=== PATIENT | male | born 1960 | race Caucasian/White ===

== ENCOUNTER 2016-11-15 13:06 | Emergency (ER) | payer MEDICAID ==
[~2016-11-15] VITALS: Ht 188 cm; Wt 84.1 kg
[~2016-11-15 13:06] MED LIST: ASPI81TA14 PO; SERT25TA PO; WARF7.5T6 PO
[2016-11-15] MEDS ORDERED: ONDANSETRON 2MG/ML, 2ML IVPush ONE (14:00)
[2016-11-15] MEDS ORDERED: SODIUM CHLORIDE FLUSH 10ML SYR IVF ONE (14:00)
[2016-11-15] MEDS ORDERED: ONDANSETRON 2MG/ML, 2ML ONE (14:06)
[2016-11-15] MEDS ORDERED: HYDROmorphone 1 MG/ML, 1ML ONE ×2 (14:06→14:43)
[2016-11-15] MEDS: HYDROmorphone 1 MG/ML, 1ML IVPush PRN ×2 (14:08→16:27)
[2016-11-15 14:28] LABS: BLOOD UREA NITROGEN 7 mg/dL (7-18)
[2016-11-15 14:38] LABS: HEMATOCRIT 44.7 % (39.2-51.8); HEMOGLOBIN 14.8 g/dL (13.7-18.0)
[2016-11-15] MEDS ORDERED: CEFTRIAXONE PMX 1GM/50ML 50 ML ONE (16:23)
[2016-11-15] MEDS ORDERED: CLINDAMYCIN PMX 600MG/50ML 50 ML ONE (16:24)
[2016-11-15] MEDS ORDERED: CLINDAMYCIN PMX 600MG/50ML 50 ML IV ONE (16:30)
[2016-11-15 17:37] VITALS: BP 132/64
== END 2016-11-15 17:40 | disposition home or self-care (01) ==
LOC: ED 16:06
DX: L03.115 Cellulitis of right lower limb (principal); L03.116 Cellulitis of left lower limb; Z86.718 Personal history of other venous thrombosis and embolism
CPT/HCPCS: 36415; 80048; 82040; 83605; 85025; 85610; 85730; 87040; 93970; 96365; 96375; 99285; J1170; J2405

== ENCOUNTER 2016-11-21 11:36 | Emergency (ER) | payer MEDICAID ==
[~2016-11-21] VITALS: Ht 188 cm; Wt 85.0 kg
[2016-11-21] MEDS ORDERED: ONDANSETRON 2MG/ML, 2ML IVPush ONE (13:00)
[2016-11-21] MEDS ORDERED: SODIUM CHLORIDE FLUSH 10ML SYR IVF ONE (13:00)
[2016-11-21] MEDS ORDERED: MORPHINE SULFATE 4 MG/ML, 1ML IVPush PRN (13:00)
[2016-11-21] MEDS ORDERED: SODIUM CHLORIDE 0.9% 1,000ML IVBOLUS ONE (13:00)
[2016-11-21 13:33] LABS: HEMATOCRIT 43.6 % (39.2-51.8); HEMOGLOBIN 14.4 g/dL (13.7-18.0); WHITE BLOOD COUNT 13.3 x10^3/uL (3.4-10)
[2016-11-21 13:41] LABS: BLOOD UREA NITROGEN 12 mg/dL (7-18)
[2016-11-21] MEDS ORDERED: OXYcodone/APAP 5/325MG TABLET PO ONE (14:30)
[2016-11-21] MEDS ORDERED: OXYcodone/APAP 5/325MG TABLET ONE (14:34)
[2016-11-21 14:46] VITALS: BP 132/68
== END 2016-11-21 14:48 | disposition home or self-care (01) ==
LOC: ED 14:30
DX: I87.2 Venous insufficiency (chronic) (peripheral) (principal); Z86.718 Personal history of other venous thrombosis and embolism
CPT/HCPCS: 36415; 80048; 82040; 85025; 93005; 99285; J7512

== ENCOUNTER 2016-11-30 12:56 | Emergency (ER) | payer MEDICAID ==
[~2016-11-30] VITALS: Ht 188 cm; Wt 80.0 kg
[2016-11-30] MEDS ORDERED: MORPHINE SULFATE 4 MG/ML, 1ML ONE (13:20)
[2016-11-30] MEDS ORDERED: SODIUM CHLORIDE FLUSH 10ML SYR IVF ONE (13:30)
[2016-11-30] MEDS ORDERED: MORPHINE SULFATE 4 MG/ML, 1ML IVPush PRN (13:30)
[2016-11-30 13:32] LABS: BLOOD UREA NITROGEN 8 mg/dL (7-18)
[2016-11-30 13:38] LABS: HEMATOCRIT 46.6 % (39.2-51.8); HEMOGLOBIN 15.5 g/dL (13.7-18.0); WHITE BLOOD COUNT 14.7 x10^3/uL (3.4-10)
[2016-11-30 15:34] VITALS: BP 143/87
== END 2016-11-30 15:36 | disposition home or self-care (01) ==
LOC: ED 13:34
DX: G89.29 Other chronic pain (principal); M79.605 Pain in left leg; M79.604 Pain in right leg; G62.9 Polyneuropathy, unspecified; I87.2 Venous insufficiency (chronic) (peripheral); F17.200 Nicotine dependence, unspecified, uncomplicated; Z88.0 Allergy status to penicillin; Z86.718 Personal history of other venous thrombosis and embolism
CPT/HCPCS: 36415; 80048; 82040; 85025; 85610; 93005; 96374

== ENCOUNTER 2017-03-20 12:57 | Observation (INO) | payer MEDICAID ==
[~2017-03-20] VITALS: Ht 182.9 cm; Wt 85.0 kg
[2017-03-20 13:32] LABS: ALANINE AMINOTRANSFERASE 42 U/L (12-78); ALBUMIN 3.9 g/dL (3.4-5.0); ANION GAP 11 mmol/L (5-15); CHLORIDE 110 mmol/L (98-107); CREATININE 0.84 mg/dL (0.7-1.3); SALICYLATE LEVEL 3.3 mg/dL (2.8-20.0)
[2017-03-20 13:34] LABS: ALKALINE PHOSPHATASE 86 U/L (45-117); BILIRUBIN,TOTAL 0.3 mg/dL (0.2-1.0); TOTAL PROTEIN 7.7 g/dL (6.4-8.2)
[2017-03-20 13:36] LABS: ACETAMINOPHEN < 2 mcg/mL (10-30)
[2017-03-20 13:39] LABS: BASOPHILS # (AUTO) 0.44 x10^3/uL (0-0.1); BASOPHILS % (AUTO) 4 % (0-1); EOSINOPHILS # (AUTO) 0.08 x10^3/uL (0-0.4); EOSINOPHILS % (AUTO) 1 % (1-7); LYMPHOCYTES # (AUTO) 3.75 x10^3/uL (1-3.4); LYMPHOCYTES % (AUTO) 33 % (22-44); MD NO; MEAN CORPUSCULAR HEMOGLOBIN 29.7 pg (27.5-34.5); MEAN PLATELET VOLUME 8.8 fL (7.4-10.4); MONOCYTES # (AUTO) 0.94 x10^3/uL (0.2-0.8); MONOCYTES % (AUTO) 8 % (2-9); NEUTROPHILS % (AUTO) 54 % (42-75); PLATELET COUNT 421 x10^3/uL (130-400); RED BLOOD COUNT 5.26 x10^6/uL (4.38-5.82); RED CELL DISTRIBUTION WIDTH 14.1 % (9.4-14.8)
[2017-03-20 14:01] LABS: INTERNATIONAL NORMALIZED RATIO 2.67 (0.93-1.1)
[2017-03-20 14:06] LABS: AMPHETAMINE SCREEN, URINE Negative (Negative); BARBITURATE SCREEN, URINE Negative (Negative); BENZODIAZEPINE SCREEN, URINE Negative (Negative); CANNABINOID SCREEN, URINE Negative (Negative); COCAINE SCREEN, URINE Negative (Negative); METHADONE SCREEN, URINE Negative (Negative); OPIATE SCREEN, URINE Negative (Negative)
[2017-03-20] MEDS ORDERED: LORazepam 1MG TABLET PO ONE (20:00)
[2017-03-21] MEDS ORDERED: LORazepam 1MG TABLET PO ONE
[2017-03-21] MEDS ORDERED: ACETAMINOPHEN 325 MG TABLET PO PRN (06:30)
[2017-03-21] MEDS ORDERED: LORazepam 2 MG/ML, 1ML IM PRN (06:30)
[2017-03-21] MEDS ORDERED: ONDANSETRON ODT 4 MG PO PRN (06:30)
[2017-03-21] MEDS ORDERED: DOCUSATE 100 MG CAPSULE PO PRN (06:30)
[2017-03-21] MEDS ORDERED: BISACODYL 10 MG SUPP PR PRN (06:30)
[2017-03-21] MEDS ORDERED: POLYETHYLENE GLYCOL 17 GM PACKET PO PRN (06:30)
[2017-03-21 06:34] LABS: FREE T4 (FREE THYROXINE) 0.88 ng/dL (0.76-1.46); THYROID STIMULATING HORMONE 1.58 mIU/L (0.358-3.740)
[2017-03-21] MEDS ORDERED: SERTRALINE HCL 150 MG PO SCH (09:00)
[2017-03-21] MEDS: PLEASE ENTER WEIGHT MC SCH (17:30)
[2017-03-21 19:55] LABS: INTERNATIONAL NORMALIZED RATIO 2.1 (0.93-1.1); PROTHROMBIN TIME 21.3 Seconds (9.6-11.5)
[2017-03-22] MEDS: PLEASE ENTER WEIGHT MC SCH (01:30)
[2017-03-22 06:27] LABS: INTERNATIONAL NORMALIZED RATIO 1.79 (0.93-1.1); PROTHROMBIN TIME 18.2 Seconds (9.6-11.5)
[2017-03-22] MEDS ORDERED: LORazepam 1MG TABLET ONE (08:54)
[2017-03-22] MEDS: LORazepam 1MG TABLET PO PRN ×2 (08:55→19:54)
[2017-03-22] MEDS: SERTRALINE 50MG TABLET PO SCH (09:30)
[2017-03-22 09:53] LABS: MICROSCOPIC NOT IND
[2017-03-22 10:02] LABS: CULTURE INDICATED? NO
[2017-03-22 16:20] VITALS: BP 139/91
[2017-03-22] MEDS ORDERED: WARFARIN 10 MG TABLET PO-COUM ONE (18:00)
[2017-03-22 19:38] VITALS: BP 128/79
[2017-03-23 06:04] LABS: INTERNATIONAL NORMALIZED RATIO 1.44 (0.93-1.1); PROTHROMBIN TIME 14.7 Seconds (9.6-11.5)
[2017-03-23 07:57] VITALS: BP 124/83
[2017-03-23] MEDS: SERTRALINE 50MG TABLET PO SCH (08:28)
[2017-03-23] MEDS ORDERED: WARFARIN 10 MG TABLET PO-COUM ONE (18:00)
[2017-03-23] MEDS ORDERED: WARFARIN 2 MG TABLET PO-COUM ONE (18:00)
[2017-03-23 19:29] VITALS: BP 114/71
[2017-03-23] MEDS: LORazepam 1MG TABLET PO PRN (19:55)
[2017-03-24 06:34] LABS: INTERNATIONAL NORMALIZED RATIO 1.71 (0.93-1.1); PROTHROMBIN TIME 17.4 Seconds (9.6-11.5)
[2017-03-24 07:30] VITALS: BP 107/72
[2017-03-24] MEDS: SERTRALINE 50MG TABLET PO SCH (08:47)
[2017-03-24] MEDS ORDERED: WARFARIN 10 MG TABLET PO-COUM ONE (18:00)
[2017-03-24 20:00] VITALS: BP 105/70
[2017-03-25 07:00] LABS: INTERNATIONAL NORMALIZED RATIO 2.22 (0.93-1.1); PROTHROMBIN TIME 22.5 Seconds (9.6-11.5)
[2017-03-25 07:30] VITALS: BP 109/56
[2017-03-25] MEDS: SERTRALINE 50MG TABLET PO SCH (08:24)
[2017-03-25] MEDS ORDERED: WARFARIN 3 MG TABLET PO-COUM ONE (18:00)
[2017-03-25 20:11] VITALS: BP 112/76
[2017-03-26 05:29] LABS: INTERNATIONAL NORMALIZED RATIO 2.27 (0.93-1.1)
[2017-03-26 08:25] VITALS: BP 117/78
[2017-03-26] MEDS: SERTRALINE 50MG TABLET PO SCH (08:41)
[2017-03-26] MEDS ORDERED: WARFARIN 3 MG TABLET PO-COUM ONE (18:00)
[2017-03-26 19:38] VITALS: BP 116/78
[2017-03-26] MEDS: LORazepam 1MG TABLET PO PRN (20:23)
[2017-03-27 05:44] LABS: INTERNATIONAL NORMALIZED RATIO 2.38 (0.93-1.1); PROTHROMBIN TIME 24.1 Seconds (9.6-11.5)
[2017-03-27 07:42] VITALS: BP 112/72
[2017-03-27] MEDS: SERTRALINE 50MG TABLET PO SCH (08:29)
[2017-03-27] MEDS ORDERED: WARFARIN 3 MG TABLET PO-COUM ONE (18:00)
[2017-03-27 19:59] VITALS: BP 117/76
[2017-03-27] MEDS: LORazepam 1MG TABLET PO PRN (20:35)
[2017-03-28 05:48] LABS: INTERNATIONAL NORMALIZED RATIO 2.25 (0.93-1.1); PROTHROMBIN TIME 22.8 Seconds (9.6-11.5)
[2017-03-28] MEDS: SERTRALINE 50MG TABLET PO SCH (08:03)
[2017-03-28 08:58] VITALS: BP 112/77
[2017-03-28] MEDS ORDERED: WARFARIN 10 MG TABLET PO-COUM ONE (18:00)
[2017-03-28] MEDS: LORazepam 1MG TABLET PO PRN (18:23)
[2017-03-28 20:00] VITALS: BP 121/78
[2017-03-29 05:45] LABS: INTERNATIONAL NORMALIZED RATIO 2.28 (0.93-1.1); PROTHROMBIN TIME 23.1 Seconds (9.6-11.5)
[2017-03-29] MEDS: SERTRALINE 50MG TABLET PO SCH (08:02)
[2017-03-29 09:46] VITALS: BP 104/73
[2017-03-29] MEDS ORDERED: WARFARIN 10 MG TABLET PO-COUM SCH (18:00)
== END 2017-03-29 17:01 | disposition home or self-care (01) ==
LOC: ED 18:30 → EDIP 23:58 → 2N 03-22 14:41
PROVIDERS: ADMIT Internal Medicine; ATTEND Family Medicine
DX: R45.851 Suicidal ideations (principal); I73.9 Peripheral vascular disease, unspecified; F12.90 Cannabis use, unspecified, uncomplicated; F17.210 Nicotine dependence, cigarettes, uncomplicated; F33.9 Major depressive disorder, recurrent, unspecified; Z79.01 Long term (current) use of anticoagulants; Z86.711 Personal history of pulmonary embolism; Z86.718 Personal history of other venous thrombosis and embolism
CPT/HCPCS: 36415; 80053; 80307; 80329; 81003; 84439; 84443; 85025; 85610; 99285; G0378; Q0162; G0480

== ENCOUNTER 2017-03-30 01:05 | Observation (INO) | payer MEDICAID ==
[~2017-03-30] VITALS: Ht 188 cm; Wt 100.0 kg
[2017-03-30 01:42] LABS: INTERNATIONAL NORMALIZED RATIO 2.13 (0.93-1.1); PROTHROMBIN TIME 21.6 Seconds (9.6-11.5)
[2017-03-30 01:47] LABS: ALANINE AMINOTRANSFERASE 36 U/L (12-78); ALBUMIN 4.4 g/dL (3.4-5.0); ANION GAP 12 mmol/L (5-15); CALCIUM 8.3 mg/dL (8.5-10.1); CHLORIDE 107 mmol/L (98-107)
[2017-03-30 01:49] LABS: ALKALINE PHOSPHATASE 86 U/L (45-117); BASOPHILS # (AUTO) 0.17 x10^3/uL (0-0.1); BASOPHILS % (AUTO) 2 % (0-1); BILIRUBIN,TOTAL 0.2 mg/dL (0.2-1.0); EOSINOPHILS # (AUTO) 0.09 x10^3/uL (0-0.4); EOSINOPHILS % (AUTO) 1 % (1-7); LYMPHOCYTES # (AUTO) 3.44 x10^3/uL (1-3.4); LYMPHOCYTES % (AUTO) 32 % (22-44); MD NO; MEAN CORPUSCULAR HEMOGLOBIN 30.3 pg (27.5-34.5); MEAN CORPUSCULAR HGB CONC 33.3 g/dL (33.2-36.2); MEAN PLATELET VOLUME 9.4 fL (7.4-10.4); MONOCYTES % (AUTO) 12 % (2-9); NEUTROPHILS # (AUTO) 5.88 x10^3/uL (1.8-6.8); NEUTROPHILS % (AUTO) 54 % (42-75); PLATELET COUNT 325 x10^3/uL (130-400); RED BLOOD COUNT 5.18 x10^6/uL (4.38-5.82); RED CELL DISTRIBUTION WIDTH 14.2 % (9.4-14.8); TOTAL PROTEIN 8.7 g/dL (6.4-8.2)
[2017-03-30 01:50] LABS: ACETAMINOPHEN < 2 mcg/mL (10-30)
[2017-03-30 02:04] LABS: AMPHETAMINE SCREEN, URINE Negative (Negative); BARBITURATE SCREEN, URINE Negative (Negative); BENZODIAZEPINE SCREEN, URINE Negative (Negative); CANNABINOID SCREEN, URINE Negative (Negative); COCAINE SCREEN, URINE Negative (Negative); METHADONE SCREEN, URINE Negative (Negative); OPIATE SCREEN, URINE Negative (Negative)
[2017-03-30] MEDS ORDERED: HALOPERIDOL 5 MG TABLET PO PRN (14:30)
[2017-03-30] MEDS ORDERED: ONDANSETRON ODT 4 MG PO PRN (14:30)
[2017-03-30] MEDS ORDERED: POTASSIUM CHLORIDE 20 MEQ TAB.ER.PRT ONE (14:55)
[2017-03-30] MEDS ORDERED: SERTRALINE 50MG TABLET ONE (14:56)
[2017-03-30] MEDS ORDERED: POTASSIUM CHLORIDE 20 MEQ TAB.ER.PRT PO ONE (15:00)
[2017-03-30] MEDS ORDERED: THIAMINE 100MG TABLET PO ONE (15:00)
[2017-03-30] MEDS ORDERED: FOLIC ACID 1 MG TABLET PO ONE (15:00)
[2017-03-30] MEDS: SERTRALINE 50MG TABLET PO SCH (15:11)
[2017-03-30] MEDS ORDERED: ONDANSETRON ODT 4 MG ONE (16:44)
[2017-03-30] MEDS ORDERED: WARFARIN 10 MG TABLET PO-COUM ONE (18:00)
[2017-03-31 05:33] LABS: INTERNATIONAL NORMALIZED RATIO 2.29 (0.93-1.1); PROTHROMBIN TIME 23.2 Seconds (9.6-11.5)
[2017-03-31] MEDS: SERTRALINE 50MG TABLET PO SCH (09:00)
[2017-03-31] MEDS ORDERED: SERTRALINE 50MG TABLET PO SCH (09:00)
[2017-03-31] MEDS ORDERED: WARFARIN 10 MG TABLET PO-COUM SCH (18:00)
[2017-04-01 06:23] LABS: INTERNATIONAL NORMALIZED RATIO 2.68 (0.93-1.1); PROTHROMBIN TIME 27.1 Seconds (9.6-11.5)
[2017-04-01] MEDS ORDERED: SERTRALINE 50MG TABLET ONE (08:52)
[2017-04-01] MEDS: SERTRALINE 50MG TABLET PO SCH (09:19)
[2017-04-01] MEDS ORDERED: WARFARIN 7.5 MG TABLET PO-COUM SCH (18:00)
[2017-04-01 20:07] VITALS: BP 134/80
[2017-04-02 05:40] LABS: INTERNATIONAL NORMALIZED RATIO 3.13 (0.93-1.1); PROTHROMBIN TIME 31.5 Seconds (9.6-11.5)
[2017-04-02 07:59] VITALS: BP 111/71
[2017-04-02] MEDS: SERTRALINE 50MG TABLET PO SCH (08:42)
[2017-04-02] MEDS ORDERED: WARFARIN 2.5 MG TABLET PO-COUM ONE (18:00)
[2017-04-02 20:21] VITALS: BP 117/81
[2017-04-03 08:00] VITALS: BP 103/72
[2017-04-03] MEDS: SERTRALINE 50MG TABLET PO SCH (08:28)
[2017-04-03] MEDS ORDERED: WARFARIN 5 MG TABLET PO-COUM ONE (18:00)
[2017-04-03 19:34] VITALS: BP 107/71
[2017-04-04 08:07] VITALS: BP 112/70
[2017-04-04] MEDS: SERTRALINE 50MG TABLET PO SCH (08:07)
[2017-04-04] MEDS ORDERED: WARFARIN 5 MG TABLET PO-COUM ONE (18:00)
[2017-04-04 19:39] VITALS: BP 103/69
[2017-04-05 08:01] VITALS: BP 108/68
[2017-04-05] MEDS: SERTRALINE 50MG TABLET PO SCH (09:48)
[2017-04-05 19:19] VITALS: BP 118/85
[2017-04-06 07:43] VITALS: BP 107/90
[2017-04-06 08:18] LABS: INTERNATIONAL NORMALIZED RATIO 1.45 (0.93-1.1)
[2017-04-06] MEDS: SERTRALINE 50MG TABLET PO SCH (08:45)
[2017-04-06] MEDS ORDERED: WARFARIN 7.5 MG TABLET PO-COUM ONE (18:00)
[2017-04-06 19:35] VITALS: BP 107/74
[2017-04-06] MEDS: TRAZODONE 50MG TABLET PO PRN (21:28)
[2017-04-07 07:45] VITALS: BP 117/72
[2017-04-07] MEDS: SERTRALINE 50MG TABLET PO SCH (08:34)
[2017-04-07] MEDS ORDERED: WARFARIN 7.5 MG TABLET PO-COUM SCH (18:00)
[2017-04-07 19:32] VITALS: BP 115/62
[2017-04-07] MEDS: TRAZODONE 50MG TABLET PO PRN (22:49)
[2017-04-08 07:23] VITALS: BP 110/66
[2017-04-08] MEDS: SERTRALINE 50MG TABLET PO SCH (08:28)
[2017-04-08] MEDS ORDERED: WARFARIN 7.5 MG TABLET PO-COUM ONE (18:00)
[2017-04-08 19:39] VITALS: BP 110/75
[2017-04-08] MEDS: TRAZODONE 50MG TABLET PO PRN (21:25)
[2017-04-09 07:43] VITALS: BP 115/79
[2017-04-09] MEDS: SERTRALINE 50MG TABLET PO SCH (08:33)
[2017-04-09] MEDS ORDERED: WARFARIN 7.5 MG TABLET PO-COUM ONE (18:00)
[2017-04-09 20:03] VITALS: BP 122/74
[2017-04-09] MEDS: TRAZODONE 50MG TABLET PO PRN (20:46)
[2017-04-10 05:26] LABS: INTERNATIONAL NORMALIZED RATIO 1.44 (0.93-1.1); PROTHROMBIN TIME 14.9 Seconds (9.6-11.5)
[2017-04-10 07:44] VITALS: BP 109/71
[2017-04-10] MEDS: SERTRALINE 50MG TABLET PO SCH (08:01)
[2017-04-10] MEDS ORDERED: WARFARIN 7.5 MG TABLET PO-COUM ONE (18:00)
[2017-04-10 19:45] VITALS: BP 117/77
[2017-04-10] MEDS: TRAZODONE 50MG TABLET PO PRN (21:00)
[2017-04-11 07:23] LABS: MEAN CORPUSCULAR HEMOGLOBIN 30.2 pg (27.5-34.5); MEAN CORPUSCULAR HGB CONC 33.2 g/dL (33.2-36.2); MEAN CORPUSCULAR VOLUME 90.8 fL (81-97); MEAN PLATELET VOLUME 9.7 fL (7.4-10.4); PLATELET COUNT 445 x10^3/uL (130-400); RED BLOOD COUNT 4.97 x10^6/uL (4.38-5.82); RED CELL DISTRIBUTION WIDTH 14.1 % (9.4-14.8)
[2017-04-11 07:24] LABS: ANION GAP 4 mmol/L (5-15); CHLORIDE 107 mmol/L (98-107); CREATININE 1.03 mg/dL (0.7-1.3)
[2017-04-11 07:25] VITALS: BP 98/64
[2017-04-11 07:35] LABS: MD YES
[2017-04-11 07:37] LABS: <PLATELET ESTIMATE> INCREASED; <RBC MORPHOLOGY> NORMAL; EOS#(MANUAL) 0.56 x10^3/uL (0.0-0.4); EOS% (MANUAL) 6 % (1-7); LYMPH#(MANUAL) 3.07 x10^3/uL (1-3.4); LYMPHS% (MANUAL) 33 % (22-44); MONOS#(MANUAL) 0.84 x10^3/uL (0.3-2.7); MONOS% (MANUAL) 9 % (2-9); SEG#(MANUAL) 4.84 x10^3/uL (1.8-6.8); SEGS% (MANUAL) 52 % (42-75)
[2017-04-11 07:39] LABS: LARGE PLATELETS 1+
[2017-04-11] MEDS: SERTRALINE 50MG TABLET PO SCH (08:29)
[2017-04-11] MEDS ORDERED: WARFARIN 7.5 MG TABLET PO-COUM ONE (18:00)
[2017-04-11 19:41] VITALS: BP 112/75
[2017-04-11] MEDS: TRAZODONE 50MG TABLET PO PRN (22:40)
[2017-04-12 07:45] VITALS: BP 107/72
[2017-04-12] MEDS: SERTRALINE 50MG TABLET PO SCH (08:04)
== END 2017-04-12 16:00 | disposition home or self-care (01) ==
LOC: ED 01:25 → EDIP 13:45 → 2N 04-01 19:26
PROVIDERS: ADMIT Internal Medicine; ATTEND Internal Medicine
DX: R45.851 Suicidal ideations (principal); F32.9 Major depressive disorder, single episode, unspecified; F10.220 Alcohol dependence with intoxication, uncomplicated; E83.51 Hypocalcemia; E83.39 Other disorders of phosphorus metabolism; E87.6 Hypokalemia; D68.59 Other primary thrombophilia; F17.210 Nicotine dependence, cigarettes, uncomplicated; I73.9 Peripheral vascular disease, unspecified; Z79.01 Long term (current) use of anticoagulants; Z86.718 Personal history of other venous thrombosis and embolism; Z86.711 Personal history of pulmonary embolism; F12.90 Cannabis use, unspecified, uncomplicated
CPT/HCPCS: 36415; 70450; 80048; 80053; 80307; 80329; 82962; 85025; 85610; 93005; 99285; G0378; Q0162; G0480

== ENCOUNTER 2017-04-14 17:44 | Emergency (ER) | payer MEDICAID ==
[~2017-04-14] VITALS: Ht 175.3 cm; Wt 93.3 kg
[2017-04-14 18:51] LABS: BASOPHILS # (AUTO) 0.07 x10^3/uL (0-0.1); BASOPHILS % (AUTO) 1 % (0-1); EOSINOPHILS # (AUTO) 0.03 x10^3/uL (0-0.4); EOSINOPHILS % (AUTO) 0 % (1-7); LYMPHOCYTES # (AUTO) 3.62 x10^3/uL (1-3.4); LYMPHOCYTES % (AUTO) 31 % (22-44); MD NO; MEAN CORPUSCULAR HEMOGLOBIN 30.1 pg (27.5-34.5); MEAN CORPUSCULAR HGB CONC 33.3 g/dL (33.2-36.2); MEAN CORPUSCULAR VOLUME 90.3 fL (81-97); MEAN PLATELET VOLUME 9.4 fL (7.4-10.4); MONOCYTES # (AUTO) 0.89 x10^3/uL (0.2-0.8); MONOCYTES % (AUTO) 8 % (2-9); NEUTROPHILS # (AUTO) 7.21 x10^3/uL (1.8-6.8); NEUTROPHILS % (AUTO) 61 % (42-75); PLATELET COUNT 438 x10^3/uL (130-400); RED BLOOD COUNT 5.22 x10^6/uL (4.38-5.82); RED CELL DISTRIBUTION WIDTH 14.3 % (9.4-14.8)
[2017-04-14 19:00] LABS: ALBUMIN 4.5 g/dL (3.4-5.0); ANION GAP 11 mmol/L (5-15); CALCIUM 8.9 mg/dL (8.5-10.1); CHLORIDE 107 mmol/L (98-107); CREATININE 0.98 mg/dL (0.7-1.3); SALICYLATE LEVEL 2.3 mg/dL (2.8-20.0)
[2017-04-14 19:03] LABS: ACETAMINOPHEN < 2 mcg/mL (10-30)
[2017-04-14 19:48] VITALS: BP 102/73
== END 2017-04-14 22:00 | disposition home or self-care (01) ==
LOC: ED 20:18
DX: F10.229 Alcohol dependence with intoxication, unspecified (principal); Z86.718 Personal history of other venous thrombosis and embolism; Z79.899 Other long term (current) drug therapy
CPT/HCPCS: 36415; 80048; 80307; 80329; 82040; 85025; 93005; 99285; G0480

== ENCOUNTER 2018-01-05 12:07 | Emergency (ER) | payer MEDICAID ==
[~2018-01-05] VITALS: Ht 188 cm; Wt 85.7 kg
[~2018-01-05 12:07] MED LIST changes: +WARF7.5T46 PO; -WARF7.5T6 PO
[2018-01-05] MEDS ORDERED: CEFAZOLIN PMX 1GM/50ML 50 ML IV ONE (12:30)
[2018-01-05] MEDS ORDERED: SULFAMETH./TRIMETHOPRIM DS 800MG/160MG TABLET PO ONE (12:30)
[2018-01-05] MEDS ORDERED: SODIUM CHLORIDE FLUSH 10ML SYR IVF ONE (12:30)
[2018-01-05] MEDS ORDERED: SODIUM CHLORIDE 0.9% 1,000ML IVBOLUS ONE (12:30)
[2018-01-05] MEDS ORDERED: RIVA20TA PO (12:45)
[2018-01-05] MEDS ORDERED: SULFAMETH./TRIMETHOPRIM DS 800MG/160MG TABLET ONE (12:48)
[2018-01-05] MEDS ORDERED: CEFAZOLIN PMX 1GM/50ML 50 ML ONE (12:48)
[2018-01-05 13:06] LABS: ALBUMIN 4.1 g/dL (3.4-5.0); ANION GAP 15 mmol/L (5-15); CALCIUM 8.5 mg/dL (8.5-10.1); CHLORIDE 101 mmol/L (98-107); CREATININE 0.81 mg/dL (0.7-1.3)
[2018-01-05 13:09] LABS: MD YES
[2018-01-05 13:38] LABS: MEAN CORPUSCULAR HEMOGLOBIN 31.5 pg (27.5-34.5); MEAN CORPUSCULAR HGB CONC 33.4 g/dL (33.2-36.2); MEAN CORPUSCULAR VOLUME 94.6 fL (81-97); MEAN PLATELET VOLUME 9.3 fL (7.4-10.4); PLATELET COUNT 161 x10^3/uL (130-400); RED BLOOD COUNT 4.56 x10^6/uL (4.38-5.82); RED CELL DISTRIBUTION WIDTH 16.6 % (9.4-14.8)
[2018-01-05 13:40] LABS: BAND#(MANUAL) 0.26 x10^3/uL; BANDS%(MANUAL) 3 % (0-7); LYMPH#(MANUAL) 1.12 x10^3/uL (1-3.4); LYMPHS% (MANUAL) 13 % (22-44); MONOS#(MANUAL) 0.95 x10^3/uL (0.3-2.7); MONOS% (MANUAL) 11 % (2-9); NRBC % (MANUAL) 1 % (0-1); SEG#(MANUAL) 6.28 x10^3/uL (1.8-6.8); SEGS% (MANUAL) 73 % (42-75)
[2018-01-05 13:44] LABS: OVALOCYTES 1+; SCHISTOCYTES 1+; SPHEROCYTES 1+
[2018-01-05 13:46] LABS: TARGET CELLS 1+
[2018-01-05 13:47] LABS: <PLATELET ESTIMATE> ADEQUATE; <PLT MORPHOLOGY> NORMAL PLT MORPH; ACANTHOCYTES 1+
[2018-01-05 14:28] VITALS: BP 136/83
== END 2018-01-05 14:56 | disposition left against medical advice (07) ==
LOC: ED 14:50
DX: L03.116 Cellulitis of left lower limb (principal); F32.9 Major depressive disorder, single episode, unspecified; Z86.718 Personal history of other venous thrombosis and embolism
CPT/HCPCS: 36415; 73630; 80048; 82040; 83605; 84145; 85025; 87040; 96365; 99284; J0690; J7030

== ENCOUNTER 2018-05-29 20:31 | Emergency (ER) | payer MEDICAID ==
[~2018-05-29] VITALS: Ht 188 cm; Wt 89.0 kg
[~2018-05-29 20:31] MED LIST changes: +RIVA20TA PO
[2018-05-29 21:54] LABS: BASOPHILS # (AUTO) 0.19 x10^3/uL (0-0.1); BASOPHILS % (AUTO) 2 % (0-1); EOSINOPHILS # (AUTO) 0.29 x10^3/uL (0-0.4); EOSINOPHILS % (AUTO) 2 % (1-7); LYMPHOCYTES # (AUTO) 3.41 x10^3/uL (1-3.4); LYMPHOCYTES % (AUTO) 29 % (22-44); MD NO; MEAN CORPUSCULAR HEMOGLOBIN 31.2 pg (27.5-34.5); MEAN CORPUSCULAR HGB CONC 32.8 g/dL (33.2-36.2); MEAN CORPUSCULAR VOLUME 95.1 fL (81-97); MEAN PLATELET VOLUME 8.8 fL (7.4-10.4); MONOCYTES # (AUTO) 1.29 x10^3/uL (0.2-0.8); MONOCYTES % (AUTO) 11 % (2-9); NEUTROPHILS # (AUTO) 6.65 x10^3/uL (1.8-6.8); NEUTROPHILS % (AUTO) 56 % (42-75); PLATELET COUNT 471 x10^3/uL (130-400); RED BLOOD COUNT 4.83 x10^6/uL (4.38-5.82); RED CELL DISTRIBUTION WIDTH 16.2 % (9.4-14.8)
--- NOTE | 2018-05-29 21:56 | NUR ---
HEMA RN: PT REPORTS SOB AND COUGH. VS STABLE. 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 NSR NOTED. PUSLE OX ON 100% RA. CALL LIGHT IN PLACE. REPORT GIVEN TO RICKEY FARFAN
[2018-05-29 22:04] LABS: ALBUMIN 3.9 g/dL (3.4-5.0); ANION GAP 5 mmol/L (5-15); CHLORIDE 110 mmol/L (98-107); CREATININE 0.86 mg/dL (0.7-1.3)
[2018-05-29 22:08] LABS: TROPONIN I < 0.015 ng/mL (0.000-0.045)
[2018-05-29] MEDS ORDERED: ALBUTEROL/IPRATROPIUM 2.5MG/0.5MG, 3 ML NPPB ONE (22:30)
[2018-05-29 23:11] VITALS: BP 117/71
== END 2018-05-29 23:17 | disposition home or self-care (01) ==
LOC: ED 23:06
DX: J20.9 Acute bronchitis, unspecified (principal); R06.00 Dyspnea, unspecified; Z86.718 Personal history of other venous thrombosis and embolism; Z88.0 Allergy status to penicillin
CPT/HCPCS: 36415; 71046; 80048; 82040; 84484; 85025; 85379; 93005; 94640; 99284; J7620

== ENCOUNTER 2020-01-15 10:07 | Emergency (ER) | payer MEDICAID ==
[~2020-01-15] VITALS: Ht 188 cm; Wt 91.0 kg
--- NOTE | 2020-01-15 10:08 | NUR ---
INITIAL PT CONTACT. PT PRESENTS TO ED VIA EMS C/O "ETOH DETOX". LAST DRINK LAST NIGHT, DRINKS 1-2 PINTS OF [place]NAP[place] DAILY. "I WANT TO STOP DRINKING BUT I ALWAYS GET THE SHAKES LIKE THIS WHEN I TRY TO STOP". PT C/O NAUSEA AND MILD TEE ALONG WITH TREMORS. PT SITTING UPRIGHT ON GURNEY, ANXIOUS. ERP AT BEDSIDE. CALL LIGHT AND SEIZURE PRECAUTIONS IN PLACE. WILL CONTINUE TO MONITOR.
[2020-01-15] MEDS ORDERED: LORazepam 2 MG/ML, 1ML ONE (10:17)
[2020-01-15] MEDS: LORazepam 2 MG/ML, 1ML IVPush PRN ×2 (10:23→11:18)
[2020-01-15] MEDS ORDERED: THIAMINE 100MG TABLET PO ONE (10:30)
[2020-01-15] MEDS ORDERED: SODIUM CHLORIDE 0.9% 1,000ML IVBOLUS ONE (10:30)
[2020-01-15] MEDS ORDERED: THIAMINE 100MG TABLET ONE (10:32)
[2020-01-15 10:35] LABS: BASOPHILS % (AUTO) 1 % (0-1); EOSINOPHILS % (AUTO) 0 % (1-7); LYMPHOCYTES % (AUTO) 18 % (22-44); MEAN CORPUSCULAR HEMOGLOBIN 31.6 pg (27.5-34.5); MEAN CORPUSCULAR HGB CONC 33.6 g/dL (33.2-36.2); MEAN PLATELET VOLUME 9.9 fL (7.4-10.4); MONOCYTES % (AUTO) 6 % (2-9); NEUTROPHILS % (AUTO) 75 % (42-75); PLATELET COUNT 176 x10^3/uL (130-400); RED BLOOD COUNT 4.63 x10^6/uL (4.38-5.82); RED CELL DISTRIBUTION WIDTH 15.1 % (9.4-14.8)
[2020-01-15 10:37] LABS: MD NO
--- NOTE | 2020-01-15 10:44 | NUR ---
PT SLEEPING UPRIGHT ON GURNEY. O2 SAT DECREASED TO 84-86% ON ROOM AIR. PT PLACED ON SUPPLEMENTAL O2, 2L VIA NASAL CANNULA.
[2020-01-15 10:48] LABS: ALANINE AMINOTRANSFERASE 30 U/L (12-78); ALBUMIN 4.2 g/dL (3.4-5.0); ANION GAP 14 mmol/L (5-15); CHLORIDE 104 mmol/L (98-107); CREATININE 0.82 mg/dL (0.7-1.3)
[2020-01-15 10:50] LABS: ALKALINE PHOSPHATASE 112 U/L (45-117); BILIRUBIN,TOTAL 1.5 mg/dL (0.2-1.0)
[2020-01-15 11:34] VITALS: BP 133/88
--- NOTE | 2020-01-15 11:43 | NUR ---
Patient given discharge instructions and they have confirmed that they understand the instructions. Patient to d/c desk via wheelchair, per pt request.
== END 2020-01-15 11:45 | disposition home or self-care (01) ==
LOC: ED 11:02
DX: F10.239 Alcohol dependence with withdrawal, unspecified (principal); R00.0 Tachycardia, unspecified; Z86.718 Personal history of other venous thrombosis and embolism; Z86.711 Personal history of pulmonary embolism; Y90.9 Presence of alcohol in blood, level not specified
CPT/HCPCS: 36415; 80053; 80320; 83690; 85025; 96361; 96374; 96376; 99284; J2060; J7030; G0480

== ENCOUNTER 2020-08-21 10:52 | Observation (INO) | payer MEDICAID, OTHER ==
[~2020-08-21] VITALS: Ht 188 cm; Wt 87.7 kg
--- NOTE | 2020-08-21 10:55 | NUR ---
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 HX DVT AND PE. STATES IT FEELS SIMILAR. ON ARRIVAL TO ED PT STATES SOB AND CP IMPROVED. WAS GIVEN 324 MG ASA SILVER MINER BLASTING. VS SILVER MINER BLASTING HR 70, BP 110/70, 98% RA. PT RESTING ON GURNEY. NADN. MONITORS APPLIED. VSS. WARM BLANKET PROVIDED. EKG COMPLETED. SECURITY X 1 AT BEDSIDE.
[2020-08-21] MEDS ORDERED: MORPHINE SULFATE 4 MG/ML, 1ML ONE (11:30)
[2020-08-21] MEDS ORDERED: MORPHINE SULFATE 4 MG/ML, 1ML IVPush ONE (11:30)
--- NOTE | 2020-08-21 11:33 | NUR ---
PT RESTING ON GURNEY. NADN. URRUTIA.
[2020-08-21 12:09] LABS: BASOPHILS % (AUTO) 1 % (0-1); EOSINOPHILS % (AUTO) 0 % (1-7); LYMPHOCYTES % (AUTO) 15 % (22-44); MEAN CORPUSCULAR HEMOGLOBIN 33.5 pg (27.5-34.5); MEAN CORPUSCULAR HGB CONC 33.7 g/dL (33.2-36.2); MEAN PLATELET VOLUME 9.1 fL (7.4-10.4); MONOCYTES % (AUTO) 11 % (2-9); NEUTROPHILS % (AUTO) 72 % (42-75); PLATELET COUNT 421 x10^3/uL (130-400); RED BLOOD COUNT 4.49 x10^6/uL (4.38-5.82); RED CELL DISTRIBUTION WIDTH 20.4 % (9.4-14.8)
[2020-08-21 12:11] LABS: ALANINE AMINOTRANSFERASE 61 U/L (12-78); ALBUMIN 3.7 g/dL (3.4-5.0)
[2020-08-21 12:16] LABS: ALKALINE PHOSPHATASE 80 U/L (45-117); BILIRUBIN,TOTAL 0.6 mg/dL (0.2-1.0); TOTAL PROTEIN 7.3 g/dL (6.4-8.2); TROPONIN I < 0.015 ng/mL (0.000-0.045)
[2020-08-21 12:20] LABS: ANION GAP 5 mmol/L (5-15); CHLORIDE 107 mmol/L (98-107)
[2020-08-21 12:34] LABS: ANISOCYTOSIS 1+; HOWELL-JOLLY BODIES 1+
[2020-08-21 12:35] LABS: ACANTHOCYTES 1+; ECHINOCYTES 1+
[2020-08-21 12:36] LABS: <PLATELET ESTIMATE> INCREASED; <PLT MORPHOLOGY> NORMAL PLT MORPH
[2020-08-21] MEDS ORDERED: OMNIPAQUE 350 MG/ML, 75ML BOTTLE ONE (12:36)
--- NOTE | 2020-08-21 12:54 | NUR ---
PT RESTING ON GURNEY. NADN. URRUTIA.
--- NOTE | 2020-08-21 13:19 | NUR ---
PT CHART REVIEWED AND PLACED FOR RECHECK.
--- NOTE | 2020-08-21 13:49 | NUR ---
PT RESTING ON GURNEY. NADN. URRUTIA.
--- NOTE | 2020-08-21 14:53 | NUR ---
PT RESTING ON GURNEY. NADN. URRUTIA.
[2020-08-21] MEDS ORDERED: GUAIFENESIN/DM 200-20MG, 10ML UDC PO PRN (15:00)
[2020-08-21] MEDS ORDERED: BACLOFEN 10 MG TABLET PO PRN (15:00)
[2020-08-21] MEDS ORDERED: ZOLPIDEM 5MG TABLET PO PRN (15:00)
[2020-08-21] MEDS ORDERED: ACETAMINOPHEN 325 MG TABLET PO PRN (15:00)
[2020-08-21] MEDS ORDERED: hydrALAzine 20 MG/ML, 1ML IVPush PRN (15:00)
[2020-08-21] MEDS ORDERED: ONDANSETRON ODT 4 MG PO PRN (15:00)
[2020-08-21] MEDS ORDERED: ENOXAPARIN 40 MG/0.4 ML SQ SCH (15:00)
[2020-08-21] MEDS ORDERED: KETOROLAC 30 MG/1 ML IV PRN (15:00)
[2020-08-21] MEDS ORDERED: BUTALB/APAP/CAFFEINE 50MG/325MG/40MG PO PRN (15:00)
[2020-08-21] MEDS ORDERED: ONDANSETRON 2MG/ML, 2ML IVPush PRN (15:00)
[2020-08-21] MEDS ORDERED: ENALAPRILAT 1.25 MG/ML, 2ML IVPush PRN (15:00)
--- NOTE | 2020-08-21 15:00 | NUR ---
REPORT GIVEN TO KAYLIN LUBIN RN. ALL QUESTIONS ANSWERED. AWAITING PT TRANSPORT.
[2020-08-21 15:38] LABS: TROPONIN I < 0.015 ng/mL (0.000-0.045)
[2020-08-21 15:42] VITALS: BP 146/71
[2020-08-21] MEDS ORDERED: LEVE500T53 PO (18:23)
[2020-08-21] MEDS ORDERED: MAALOX/HYOSCYAMINE/LIDOCAINE 45 ML BTL PO PRN (20:30)
[2020-08-21 20:39] LABS: TROPONIN I < 0.015 ng/mL (0.000-0.045)
[2020-08-21 21:21] VITALS: BP 105/70
[2020-08-21] MEDS: LACTULOSE 10 GM/15 ML UDC PO SCH (21:39)
[2020-08-22 01:32] VITALS: BP 112/71
[2020-08-22 04:30] LABS: BASOPHILS % (AUTO) 1 % (0-1); EOSINOPHILS % (AUTO) 3 % (1-7); LYMPHOCYTES % (AUTO) 30 % (22-44); MEAN CORPUSCULAR HEMOGLOBIN 33.8 pg (27.5-34.5); MEAN CORPUSCULAR HGB CONC 33.6 g/dL (33.2-36.2); MEAN PLATELET VOLUME 9.2 fL (7.4-10.4); MONOCYTES % (AUTO) 15 % (2-9); NEUTROPHILS % (AUTO) 51 % (42-75); PLATELET COUNT 462 x10^3/uL (130-400); RED BLOOD COUNT 4.38 x10^6/uL (4.38-5.82)
[2020-08-22 04:36] LABS: CALCIUM 9.1 mg/dL (8.5-10.1); CHLORIDE 106 mmol/L (98-107); CREATININE 1.09 mg/dL (0.7-1.3)
[2020-08-22 04:42] LABS: ANION GAP 3 mmol/L (5-15)
[2020-08-22 08:30] VITALS: BP 112/72
[2020-08-22] MEDS: LACTULOSE 10 GM/15 ML UDC PO SCH (09:00)
== END 2020-08-22 11:58 | disposition home or self-care (01) ==
LOC: ED 12:27 → INTOOBSV 14:27 → EDIP 14:27 → 5SO 15:35
PROVIDERS: ADMIT Family Medicine; ATTEND Family Medicine
DX: E07.89 Other specified disorders of thyroid (principal); R91.8 Other nonspecific abnormal finding of lung field; G40.909 Epilepsy, unspecified, not intractable, without status epilepticus; I87.2 Venous insufficiency (chronic) (peripheral); G57.93 Unspecified mononeuropathy of bilateral lower limbs; R06.00 Dyspnea, unspecified; Z90.81 Acquired absence of spleen; Z88.0 Allergy status to penicillin; Z86.711 Personal history of pulmonary embolism; Z86.718 Personal history of other venous thrombosis and embolism; Z79.01 Long term (current) use of anticoagulants
CPT/HCPCS: 36415; 71275; 80048; 80053; 83880; 84484; 85025; 93005; 96372; 96374; 96375; G0378; J1650; J1885; J2270; Q9967